=== PATIENT | male | born 1935 | race Caucasian/White ===

== ENCOUNTER → 2018-03-23 | Outpatient (CLI) | payer OTHER ==
[~2018-03-23] VITALS: Ht 170.2 cm; Wt 88.5 kg
[~2018-03-23] MED LIST: ASPIR 8181 MG PO; CENTRUM SILVER1 EAC2 PO; CHROMIUM PICO200 MC1 PO; CINNAMON500 MG PO; CO Q-10100 MG PO; FISH OIL 1,001000 M2 PO; IBUPROFEN 400400 M2 PO; LOPRESSOR25 PO; LUTEIN6 M1 PO; METOLAZONE 2.52.5 MG PO; PLAVIX 75 MG TA75 M1 PO; PROTONIX40 M1 PO; VITAMIN D50000 UNIT PO; VYTORIN 10-201 EACH PO
--- NOTE | ~2018-03-23 | PATH ---
[facility] [place] [address] PATHOLOGY RPT PROCEDURE Name: CRYSTAL RAMIREZ TAMARA Room #: REG [facility]ETTE [facility].#: [id number] Admission: 03/23/18 Date of : 39 Discharge: Report #: [id number] Path Case #: [id number] [facility] Accession Number: [id number] . 01 Material submitted: . GASTRITIS R/O H PYLORI BIOPSY . 01 Clinician provided ICD-10: Z86.010 R13.10 K21.9 . 01 Clinical history: . Pre-OP DX: Persistent reflux symptoms with therapy, Hx colon polyps Post-OP DX: Gastritis, duodenitis, hiatal hernia, diverticulosis, hemorrhoids . 02 Diagnosis: Stomach, gastric mucosa, gastritis, rule out H. pylori, endoscopic biopsy: - Mild chronic active gastritis. - Negative for intestinal metaplasia or atrophy. - Negative for Helicobacter pylori (properly-controlled immunohistochemical stain performed). . (IUV:mml; 03/26/18) QLM/03/26/2018 . 02 Electronically signed: . Sona Starkey MD, Pathologist NPI- [id number] . 01 Gross description: . Received in formalin labeled "Crystal Ramirez, gastritis, rule out H. pylori," are 2 segments of coburn soft tissue measuring 0.8 x 0.2 x 0.2 cm in aggregate dimensions and ranging from 0.3 to 0.5 cm in maximum dimension. The specimen is submitted entirely in cassette A1. (TSD; 03/23/2018) TOB/TOB . 02 Pathologist provided ICD-10: K29.50 . 02 CPT . 062352 Specimen Comment: A courtesy copy of this report has been sent to Specimen Comment: [phone], . Specimen Comment: Report sent to / [place] [address] PATHOLOGY RPT PROCEDURE Name: CRYSTAL RAMIREZ Room #: REG [facility]#: [id number] Admission: 03/23/18 Date of : 39 Discharge: Report #: [id number] Path Case #: [id number] [facility]formed at: [facility] [place] [address], [place], [place] [id number] MD Luis Manuel Bueno MD Phone: [phone] Performed at: [address] [id number] MD Sona Starkey MD Phone: [phone]
--- NOTE | ~2018-03-23 | P ---
[facility] [address] PROCEDURE REPORT Name: CRYSTAL SÁNCHEZ Room #: REG [facility]#: [id number] Admission: 03/23/18 Attend Phys: Alfie Hurtado MD Discharge: Date of : 39 Report #: [id number] THIS REPORT FOR: //name// CC: ALFIE Hurtado BRIEF HISTORY: The patient is an 83-year-old male with a history of colon polyps, for high risk screening colonoscopy. PREOPERATIVE DIAGNOSIS: High risk screening colonoscopy. POSTOPERATIVE DIAGNOSES: 1. Moderate sigmoid diverticulosis coli. 2. Small internal hemorrhoids. MEDICATIONS: Deep sedation with propofol per Anesthesia. SPECIMEN: None. ESTIMATED BLOOD LOSS: None. PROCEDURE: Colonoscopy to cecum and terminal ileum. FINDINGS: Prior to propofol sedation, procedure of colonoscopy was discussed with the patient as well as potential risks and its complications. He indicates he understands and desires to proceed. DESCRIPTION OF PROCEDURE: With the patient in left lateral decubitus position, digital examination was completed, which revealed no abnormalities. Subsequently, the Olympus video colonoscope was introduced in the rectum, advanced under direct vision to the cecum. This was done with minimal difficulty. The cecum was identified by the ileocecal valve and the appendiceal orifice. I was able to visualize the distal segment of terminal ileum, which was inspected and noted to be unremarkable. At that point, the scope was slowly withdrawn and careful circumferential views obtained including retroflexion of the scope in the ascending colon. Upon slow withdrawal of the scope, the prep was noted to be good. The mucosa was within normal limits, normal vascular pattern and normal light reflex. As we withdrew the scope, no neoplastic or inflammatory changes were seen. The mucosa was normal throughout. In the sigmoid colon, there was noted to be moderately severe diverticular disease without endoscopic evidence of diverticulitis. The scope was withdrawn in the rectum and upon retroflexion, no abnormalities were seen other than small internal hemorrhoids. Scope was withdrawn. The patient tolerated the procedure well. CONDITION OF THE PATIENT UPON DISCHARGE: Following procedure, the patient [address] [address] PROCEDURE REPORT Name: CRYSTAL TAMARA Room #: REG [facility].#: [id number] Admission: 03/23/18 Attend Phys: Alfie Hurtado MD Discharge: Date of : 39 Report #: [id number] drowsy, arousable, conversant and will be discharged home when fully ambulatory. INSTRUCTIONS TO THE PATIENT AND FAMILY AT THE TIME OF DISCHARGE: No neoplastic lesions seen today. At this point in life, the patient is unlikely to benefit from continued routine colonoscopy. However, if problems should arise, colonoscopy could be undertaken for that specific reason at that point in time. Last colonoscopy was 5 years ago. Withdrawal time from the cecum was 10 minutes 18 seconds. <ELECTRONICALLY SIGNED> By: Alfie Hurtado MD 03/23/18 1622 1047 [id number] Alfie Hurtado MD /kobe
--- NOTE | ~2018-03-23 | P ---
[facility] [address] [address] [place] [address] PROCEDURE REPORT Name: CRYSTAL SÁNCHEZ Room #: REG [facility]#: [id number] Admission: 03/23/18 Attend Phys: Alfie Hurtado MD Discharge: Date of : 39 Report #: [id number] THIS REPORT FOR: //name// CC: ALFIE Hurtado BRIEF HISTORY: The patient is an 83-year-old male with a history of reflux disease. He takes pantoprazole 40 mg daily. In spite of these symptoms, he has intermittent episodes of regurgitation of fluid into his esophagus and mouth. PREOPERATIVE DIAGNOSIS: Reflux symptoms on twice daily PPI. POSTOPERATIVE DIAGNOSES: 1. Mild antral gastritis. 2. Patchy bulbar duodenitis. 3. A 3 cm sliding type hiatus hernia. MEDICATIONS: Deep sedation with propofol per anesthesia. SPECIMEN: Biopsies of gastritis, rule out Helicobacter pylori. ESTIMATED BLOOD LOSS: 3 mL. PROCEDURE: EGD with biopsy. FINDINGS: Prior to propofol sedation, the procedure of upper endoscopy was discussed with the patient as well as potential risks and its complications. He indicates he understands and desires to proceed. DESCRIPTION OF PROCEDURE: With the patient in left lateral decubitus position, the Olympus video endoscope was inserted in the cervical esophagus under direct vision without difficulty. Examination of this organ through its entire length revealed normal esophageal mucosa down the squamocolumnar junction. Squamocolumnar junction was inspected and noted to be unremarkable. No ulcers or erosions were seen. There is no evidence of Aleman esophagus. There is no endoscopic evidence of esophagitis. The scope was advanced and about a 3 cm sliding type hiatus hernia was encountered. The mucosa and hernia was normal. The scope was advanced in the stomach, was examined on end view as well as retroflexed views. There was a [id number] erythema in the antrum. There were no ulcers or erosions. There were no retained solids or liquids in the stomach. Upon retroflexion, the hiatus hernia was seen. No mass lesions were seen. The pylorus, duodenal bulb and postbulbar sweep were inspected. There was patchy erythema in the duodenal bulb, but no ulcers. The mucosa was intact. The duodenal sweep down the third portion was normal. At that point, the scope was slowly withdrawn and careful circumferential views confirmed the above findings. The patient tolerated the procedure well. [address] [address] PROCEDURE REPORT Name: CRYSTALMAYELA MCDONALD Room #: REG EVETTE [facility]#: [id number] Admission: 03/23/18 Attend Phys: Alfie Hurtado MD Discharge: Date of : 39 Report #: [id number] CONDITION OF THE PATIENT UPON DISCHARGE: Following procedure, the patient drowsy was then prepared for colonoscopy. INSTRUCTIONS TO THE PATIENT AND FAMILY AT THE TIME OF DISCHARGE: The patient with findings as noted above. We will have him continue pantoprazole 40 mg daily. Suggest antireflux measures as well. Also, we will have him use ranitidine 150-300 mg as needed for breakthrough episodes, he can take in anticipation of breakthrough episodes. If he continues to have difficulties, he may need a twice daily PPI. He will follow up with Dr. Alfie Rosas and return to see me as needed. Proceed with colonoscopy at this time. <ELECTRONICALLY SIGNED> By: Alfie Hurtado MD 03/23/18 1622 1021 1328 Alfie Hurtado MD /nt
--- NOTE | ~2018-03-23 | EKG ---
[address] [address] ELECTROCARDIOGRAM REPORT Name: CRYSTAL SÁNCHEZ [facility] [id number] Admission: 03/23/18 Attend Phys: Brain Hurtado MD Discharge: Date of : 39 Report #: [id number] THIS REPORT FOR: //name// [facility] Test Date: 2018-03-23 Test Time: 09:09:05 Pat Name: CRYSTAL SÁNCHEZ Department: Room: Gender: M Sign Wirer: ARIANNE : 1935 Requested By: Sariah Aquino Order Number: [id number] MD: Merrill Villareal Measurements Intervals [place] Rate: 83 P: 61 MN: 148 QRS: 92 QRSD: 138 T: -22 QT: 422 QTc: 496 Interpretive Statements Sinus rhythm RBBB and LPFB No previous ECG available for comparison Electronically Signed On 03-30-2018 14:12:50 CDT by Merrill Villareal [email or web address] <ELECTRONICALLY SIGNED> By: Merrill Villareal MD 03/30/18 1412 8 Merrill Villareal MD /PRADEEP
== END | disposition home or self-care (01) ==
LOC: GI 08:05
DX: Z12.11 Encounter for screening for malignant neoplasm of colon (principal); K57.30 Diverticulosis of large intestine without perforation or abscess without bleeding; K64.8 Other hemorrhoids; K21.9 Gastro-esophageal reflux disease without esophagitis; Z79.899 Other long term (current) drug therapy; K29.70 Gastritis, unspecified, without bleeding; K29.80 Duodenitis without bleeding; K44.9 Diaphragmatic hernia without obstruction or gangrene; Z68.30 Body mass index [BMI] 30.0-30.9, adult; I10 Essential (primary) hypertension; E78.5 Hyperlipidemia, unspecified; Z98.890 Other specified postprocedural states; Z85.46 Personal history of malignant neoplasm of prostate; Z86.010 Personal history of colon polyps
CPT/HCPCS: 43239; G0105; 62110; 62900

== ENCOUNTER → 2019-07-30 | Outpatient (CLI) | payer OTHER | LOC: SJCVCIMAG 14:36 | DX: I25.10 Atherosclerotic heart disease of native coronary artery without angina pectoris (principal); I45.10 Unspecified right bundle-branch block; R55 Syncope and collapse; R53.83 Other fatigue ==